=== PATIENT | female | born 1950 | race Caucasian/White ===

== ENCOUNTER 2017-09-07 13:55 | Inpatient (IN) | payer MEDICARE, OTHER ==
[~2017-09-07] VITALS: Ht 154.9 cm; Wt 74.6 kg
[~2017-09-07 13:55] MED LIST: BUPR150ER PO; ESTNOR PO; GABA100 PO; GLIP5 PO; METF500 PO
[2017-09-07 14:44] LABS: BASOPHILS ABSOLUTE AUTO 0.07 K/mm3 (0.00-0.23); BASOPHILS PERCENT AUTO 1 % (0-2); EOSINOPHILS PERCENT AUTO 0 % (0-6); Hematocrit 36.4 % (33.0-51.0); Hemoglobin 12.2 g/dL (11.5-16.0); IMMATURE GRAN ABSOLUTE AUTO 0.09 K/mm3 (0.00-0.10); IMMATURE GRAN PERCENT AUTO 1 % (0-1); LYMPHOCYTES PERCENT AUTO 21 % (21-46); MONOCYTES ABSOLUTE AUTO 1.54 K/mm3 (0.16-1.47); MONOCYTES PERCENT AUTO 10 % (4-13); Mean Corpuscular HGB 28.8 pg (26.0-34.0); Mean Corpuscular HGB Conc 33.5 g/dL (31.5-36.5); Mean Corpuscular Volume 86 fL (80-100); Mean Platelet Volume 11.8 fL (9.1-12.4); NEUTROPHILS ABSOLUTE AUTO 10.64 K/mm3 (1.96-9.15); NEUTROPHILS PERCENT AUTO 68 % (41-73); Platelet Count 309 K/mm3 (150-400); RDW Coefficient Variation 13.2 % (11.7-14.2); RDW Standard Deviation 41.3 fL (35.1-46.3); Red Blood Cell Count 4.23 M/mm3 (3.80-5.20); White Blood Cell Count 15.54 K/mm3 (4.00-11.30)
[2017-09-07 15:02] LABS: Alanine Aminotransfer (ALT/SGP 24 U/L (12-78); Albumin/Globulin Ratio 1.1 (0.8-1.8); Alk Phos 60 U/L (50-136); Anion Gap 13 mmol/L (6-16); Aspartate Aminotrans (AST/SGOT 51 U/L (12-37); Bilirubin, Total 0.3 mg/dL (0.1-1.0); Blood Urea Nitrogen 34 mg/dL (8-24); Bun/Creatinine Ratio 36.6 (12.0-20.0); CO2, Blood 22 mmol/L (21-32); Calcium, Blood 9.9 mg/dL (8.5-10.1); Chloride, Blood 109 mmol/L (98-108); Creatinine, Blood 0.93 mg/dL (0.40-1.00); Globulin, Blood 3.5 g/dL (2.2-4.0); Glomerular Filtration Rate >60 (60-); Glucose, Blood 148 mg/dL (70-99); Potassium, Blood 3.7 mmol/L (3.5-5.5); Sodium, Blood 144 mmol/L (136-145); Total Protein, Blood 7.5 g/dL (6.4-8.2)
[2017-09-07 15:13] LABS: CPK Creatine Kinase 2084 U/L (26-193)
[2017-09-07 15:29] LABS: Source, Urine Clean Catch
[2017-09-07 15:29] LABS: Creatine Kinase MB 10.7 ng/mL (0.0-3.6); Creatine Kinase MB Index 0.5 (0.0-4.0)
[2017-09-07] MEDS ORDERED: GLIM2 PO (15:33)
[2017-09-07] MEDS ORDERED: METF500C PO (15:33)
[2017-09-07] MEDS ORDERED: ASPI81CH PO (15:33)
[2017-09-07] MEDS ORDERED: PIOG15 PO (15:34)
[2017-09-07] MEDS ORDERED: VENL37.5 PO (15:34)
[2017-09-07] MEDS ORDERED: Lisinopril2.5 MG PO (15:34)
[2017-09-07 15:38] LABS: Bilirubin, Urine Neg (Neg); Blood, Urine Neg (Neg); Glucose Qualitative, Urine Neg (Neg); Ketones, Urine Neg (Neg); Leukocyte Esterase, Urine 1+ (Neg); Nitrite, Urine Neg (Neg); Protein, Urine 1+ (Neg); Urobilinogen, Urine NORM (Normal)
[2017-09-07 15:45] LABS: Appearance, Urine Clear (Clear); Color, Urine Yellow (P-Yellow)
[2017-09-07 15:47] LABS: Bacteria Few /hpf; Red Blood Cells, Urine Not Seen /hpf (0-2); Squamous Epithelial Cells Few /hpf (Few)
[2017-09-07 18:21] LABS: Magnesium, Blood 1.7 mg/dL (1.6-2.4); Troponin I 0.033 ng/mL (0.000-0.040)
[2017-09-08 05:38] LABS: Hematocrit 31.9 % (33.0-51.0); Hemoglobin 10.4 g/dL (11.5-16.0); Mean Corpuscular HGB Conc 32.6 g/dL (31.5-36.5); Mean Corpuscular Volume 86 fL (80-100); Mean Platelet Volume 11.9 fL (9.1-12.4); Platelet Count 241 K/mm3 (150-400); RDW Coefficient Variation 13.4 % (11.7-14.2); RDW Standard Deviation 41.9 fL (35.1-46.3); Red Blood Cell Count 3.71 M/mm3 (3.80-5.20); White Blood Cell Count 10.37 K/mm3 (4.00-11.30)
[2017-09-08 06:11] LABS: Anion Gap 10 mmol/L (6-16); Blood Urea Nitrogen 21 mg/dL (8-24); CO2, Blood 23 mmol/L (21-32); Calcium, Blood 8.1 mg/dL (8.5-10.1); Chloride, Blood 110 mmol/L (98-108); Creatinine, Blood 0.68 mg/dL (0.40-1.00); Glomerular Filtration Rate >60 (60-); Glucose, Blood 112 mg/dL (70-99); Potassium, Blood 3.3 mmol/L (3.5-5.5); Sodium, Blood 143 mmol/L (136-145)
[2017-09-08 06:29] LABS: CPK Creatine Kinase 1672 U/L (26-193)
[2017-09-08] MEDS ORDERED: ACET325 PO (12:53)
== END 2017-09-08 14:34 | disposition home or self-care (01) | DRG 558 ==
LOC: ER 13:55 → MEDS 18:17 → ENPENDDIS 09-08 11:00 → MEDS 09-08 14:34
PROVIDERS: Emergency Medicine; Nurse Practitioner Acute Care; Physician Assistant
DX: M62.82 Rhabdomyolysis (principal); E11.9 Type 2 diabetes mellitus without complications; I10 Essential (primary) hypertension; F32.9 Major depressive disorder, single episode, unspecified; Z66 Do not resuscitate; E86.0 Dehydration; R53.1 Weakness
CPT/HCPCS: 36415; 71046; 80048; 80053; 81001; 82550; 82553; 82947; 83735; 84484; 85025; 85027; 87086; 93005; 93010; 96360; 96361; 97116; 97161; 97165; 97535; 99285-25; G8978; G8979; G8980; G8987; G8988; G8989; J1650; J7030

== ENCOUNTER 2019-11-22 15:31 | Inpatient (IN) | payer MEDICARE, OTHER ==
[~2019-11-22] VITALS: Ht 154.9 cm; Wt 83.3 kg
[~2019-11-22 15:31] MED LIST changes: +ACET325 PO; +ASPI81CH PO; +GLIM2 PO; +PIOG15 PO
[2019-11-22 16:06] LABS: BASOPHILS ABSOLUTE AUTO 0.06 K/mm3 (0.00-0.23); BASOPHILS PERCENT AUTO 1 % (0-2); EOSINOPHILS ABSOLUTE AUTO 0.03 K/mm3 (0.00-0.68); EOSINOPHILS PERCENT AUTO 0 % (0-6); Hematocrit 38.8 % (33.0-51.0); Hemoglobin 12.6 g/dL (11.5-16.0); IMMATURE GRAN ABSOLUTE AUTO 0.04 K/mm3 (0.00-0.10); IMMATURE GRAN PERCENT AUTO 0 % (0-1); LYMPHOCYTES ABSOLUTE AUTO 2.83 K/mm3 (0.84-5.20); LYMPHOCYTES PERCENT AUTO 28 % (21-46); MONOCYTES PERCENT AUTO 5 % (4-13); Mean Corpuscular HGB 28.3 pg (26.0-34.0); Mean Corpuscular HGB Conc 32.5 g/dL (31.5-36.5); Mean Corpuscular Volume 87 fL (80-100); Mean Platelet Volume 11.4 fL (9.1-12.4); NEUTROPHILS ABSOLUTE AUTO 6.65 K/mm3 (1.96-9.15); NEUTROPHILS PERCENT AUTO 66 % (41-73); Platelet Count 288 K/mm3 (150-400); RDW Coefficient Variation 13.1 % (11.7-14.2); RDW Standard Deviation 41.4 fL (35.1-46.3); Red Blood Cell Count 4.46 M/mm3 (3.80-5.20); White Blood Cell Count 10.11 K/mm3 (4.00-11.30)
[2019-11-22 16:25] LABS: Calcium, Ionized (POC) 1.07 mmol/L (1.10-1.46); Chloride (POC) 101 mmol/L (98-108); Creatinine (POC) 0.8 mg/dL (0.6-1.0); Glucose (ISTAT POC) 125 mg/dL (70-99); Hemoglobin (POC) 12.6 g/dL (12.0-16.0); Sodium (POC) 138 mmol/L (135-148); Total CO2 (POC) 25 mmol/L (21-32)
[2019-11-22 16:26] LABS: Alanine Aminotransfer (ALT/SGP 13 U/L (12-78); Albumin, Blood 3.6 g/dL (3.4-5.0); Alk Phos 69 U/L (50-136); Anion Gap 8 mmol/L (6-16); Aspartate Aminotrans (AST/SGOT 6 U/L (12-37); Bilirubin, Total 0.3 mg/dL (0.1-1.0); Blood Urea Nitrogen 14 mg/dL (8-24); Bun/Creatinine Ratio 17.3 (12.0-20.0); CO2, Blood 26 mmol/L (21-32); Calcium, Blood 8.8 mg/dL (8.5-10.1); Chloride, Blood 105 mmol/L (98-108); Creatinine, Blood 0.81 mg/dL (0.40-1.00); Globulin, Blood 3.6 g/dL (2.2-4.0); Glomerular Filtration Rate >60 (60-); Glucose, Blood 128 mg/dL (70-99); Potassium, Blood 3.9 mmol/L (3.5-5.5); Sodium, Blood 139 mmol/L (136-145); Total Protein, Blood 7.2 g/dL (6.4-8.2)
[2019-11-22] MEDS ORDERED: Buspirone HCl7.5 MG PO (17:29)
[2019-11-22] MEDS ORDERED: Lisinopril2.5 MG PO (17:29)
[2019-11-22] MEDS ORDERED: METF500 PO (17:30)
[2019-11-22] MEDS ORDERED: Amaryl1 MG PO (17:31)
[2019-11-22] MEDS ORDERED: EFFEXOR XR150 MG PO (17:32)
--- NOTE | 2019-11-22 18:45 | NUR ---
CARE ASSUMPTION PT A&O X4. SP02 >92% ON RA. TELEMETRY READS 2-1 AV BLOCK, HR 30'S. PT C/O DIZZINESS WITH EXERTION. BED ALARM ON, CALL LIGHT IN REACH. INSTRUCTED TO CALL NURSE TO GET UP TO BED SIDE COMMODE. PTS DAUGHTER LEFT APPROX 1900. WILL CONTINUE TO MONITOR UNTIL END OF SHIFT.
--- NOTE | 2019-11-22 18:50 | NUR ---
PATIENT ARRIVED FROM ED, NO SIGNS OF ACUTE DISTRESS. PATIENT ABLE TO CONVERSE WITH NURSING STAFF. DAUGHTER AT BEDSIDE, WCTM.
--- NOTE | 2019-11-22 19:30 | NUR ---
DIZZINESS PT AMBULATED TO BATHROOM W/ 1 NURSE ASSIST W/ FWW. PT BECAME DIZZY & WEAK AFTER BATHROOM USE. BED MOVED TO BATHROOM DOORWAY FOR PT TO LAY BACK DOWN. VS ASSESSED W/ BP ELEVATED. 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 SPO2 > 92% ON RA. WILL CONTINUE TO MONITOR.
[2019-11-23 04:21] LABS: BASOPHILS ABSOLUTE AUTO 0.08 K/mm3 (0.00-0.23); BASOPHILS PERCENT AUTO 1 % (0-2); EOSINOPHILS ABSOLUTE AUTO 0.16 K/mm3 (0.00-0.68); EOSINOPHILS PERCENT AUTO 2 % (0-6); Hematocrit 38.1 % (33.0-51.0); Hemoglobin 12.2 g/dL (11.5-16.0); IMMATURE GRAN ABSOLUTE AUTO 0.02 K/mm3 (0.00-0.10); IMMATURE GRAN PERCENT AUTO 0 % (0-1); LYMPHOCYTES ABSOLUTE AUTO 3.89 K/mm3 (0.84-5.20); LYMPHOCYTES PERCENT AUTO 45 % (21-46); MONOCYTES ABSOLUTE AUTO 0.73 K/mm3 (0.16-1.47); MONOCYTES PERCENT AUTO 9 % (4-13); Mean Corpuscular HGB 27.7 pg (26.0-34.0); Mean Corpuscular Volume 87 fL (80-100); Mean Platelet Volume 12.1 fL (9.1-12.4); NEUTROPHILS ABSOLUTE AUTO 3.68 K/mm3 (1.96-9.15); NEUTROPHILS PERCENT AUTO 43 % (41-73); Platelet Count 287 K/mm3 (150-400); RDW Coefficient Variation 13.1 % (11.7-14.2); RDW Standard Deviation 41.4 fL (35.1-46.3); White Blood Cell Count 8.56 K/mm3 (4.00-11.30)
[2019-11-23 04:35] LABS: International Normalized Ratio 1.05; Prothrombin Time Results 11.2 Sec (9.7-11.5)
[2019-11-23 04:43] LABS: Anion Gap 5 mmol/L (6-16); Blood Urea Nitrogen 13 mg/dL (8-24); Bun/Creatinine Ratio 16.2 (12.0-20.0); CO2, Blood 31 mmol/L (21-32); Calcium, Blood 8.6 mg/dL (8.5-10.1); Chloride, Blood 104 mmol/L (98-108); Glomerular Filtration Rate >60 (60-); Glucose, Blood 122 mg/dL (70-99); Potassium, Blood 3.2 mmol/L (3.5-5.5); Sodium, Blood 140 mmol/L (136-145)
--- NOTE | 2019-11-23 05:29 | NUR ---
CONFUSION PT HAS BEEN CONFUSED THIS SHIFT. ALERT. ORIENTED TO SELF AND PLACE. PT KNOWS SHES IN THE HOSPITAL BUT "CAN'T REMEMBER" WHY. PT ASKS, "WHERE'S MY SISTER?" MULTIPLE TIMES DESPITE ANSWER FROM NURSE. PT HAS ATTEMPTED TO GET OUT OF BED MULTIPLE TIMES THIS SHIFT. WHEN ASKED WHAT SHE NEEDS, REPLIES, "SOMETHINGS WRONG. I NEED SOMETHING." BUT DOES NOT STATE WHAT THAT SOMETHING IS. STAFF IN FOR PT SAFETY D/T MULTIPLE ATTEMPTS OUT OF BED AND PT REPORT OF DIZZINESS. WILL CONTINUE TO MONITOR.
--- NOTE | 2019-11-23 05:45 | NUR ---
END OF SHIFT SUMMARY PT ALERT. ORIENTED TO SELF AND PLACE. CONFUSED AND FORGETFUL, SEE PREVIOUS NOTE. SP02 >92% ON RA. TELEMETRY READS 2-1 AV BLOCK, HR 30-40'S. PT IS NPO AWAITING PACE MAKER PLACEMENT IN AM. PT UP TO BEDSIDE COMMODE WITH ASSISTANCE SEVERAL TIMES T/O THE NIGHT. STAFF IN ROOM FOR PT SAFETY, BED ALARM ON. WILL CONTINUE TO MONITOR UNTIL END OF SHIFT.
--- NOTE | 2019-11-23 08:47 | NUR ---
ASSUMED CARE OF PT AT 0700. PT WAS TAKEN TO [facility] FOR PACEMAKER PLACEMENT AT SHIFT CHANGE. WILL RECOVER PT POST PROCEDURE.
--- NOTE | 2019-11-23 10:18 | NUR ---
0930, PT RETURNED FROM [facility] TO PCU4 S/P PACEMAKER PLACEMENT TO LEFT CHEST. PRESSURE DRESSING IN PLACE, C/D/I NO BLEEDING NOTED. PT RETURNS LETHARGIC, AWAKENS TO VOICE. 4L NC IN PLACE, VITALS ARE STABLE, WILL ATTEMPT TO WEAN O2 WHEN PT IS MORE AWAKE. HEEL REDUCER STOPPED AT ROOM, DUE TO PRESSURE DRESSING PLACEMENT, UNALBE TO DUE ECHO AT THIS TIME. DR ORDOÑEZ NOTIFED AND OKAY TO DELAY TO TOMORROW MORNING. FAMILY AT BEDSIDE, UPDATED ON PT'S STATUS.
--- NOTE | 2019-11-23 18:00 | NUR ---
SHIFT SUMMARY PT IS ALERT AND ORIENTED TO PERSON. THIS MORNING PT HAD DUAL CHAMBER PACEMAKER PLACED TO LEFT CHEST. PT HAS BEEN VERY FORGETFUL AND NEEDS FREQUENT REMINDING OF PACER PRECAUTIONS TO THAT LEFT ARM. AT TIMES PT WOULD BECOME VERY ANXIOUS AND STATED SHE WANTED TO GO HOME. FAMILY WAS VERY HELPFUL IN HELPING MONITOR PT AND REMIND HER TO NOT GET UP WITHOUT HELP AND KEEP HER LEFT ARM DOWN. PT/OT SAW PT AND IS RECOMMENDING ASSISTANCE UPON DISCHARGE. REACHED OUT TO CASE MANAGEMENT AND NOTIFIED OF DISCHARGE CONCERNS. TELEMETRY HAS SHOWN PT TO BE SINUS WITH OCCASIONAL PACING, RATE 80'S-90'S. VITALS HAVE BEEN STABLE.
--- NOTE | 2019-11-24 06:12 | NUR ---
IGOR SUMMARY PT WAS DISORIENTED TO TIME AND PLACE, CONTINUOUSLY FORGOT PERCAUTIONS TAKING OFF ARM SLING AND AMBULATING OUT OF BED. PT WAS UNSTABLE WHEN STANDING, USED BEDSIDE COMMODE, PT BECAME INCREASINGLY DISORIENTED AND COMBATIVE AROUND 0100, PROVIDER WAS NOTIFIED AND HALDOL WAS ORDERED AND ADMINISTERED TO HELP WITH THE INCREASED ANXIETY. PT WAS FORGETFUL NEVER KNOWING WHERE SHE WAS. PT DID NOT STATE ANY PAIN, STATED MILD DISCOMFORT AROUND SURGICAL SITE AND THE DRESSING. PT HAD A DUAL CHAMBER PACE MAKER PLACED WITH LOWER RATE SET AT 60BPM. HR WAS 80'S 100% PACED AND STABLE, BP 140'S SYSTOLIC. BED ALARM IS ON AND WILL CONTINUE TO MONITOR UNTIL SHIFT CHANGE.
[2019-11-24 12:24] LABS: Source, Urine Clean Catch
[2019-11-24 12:27] LABS: Appearance, Urine Hazy (Clear); Bilirubin, Urine Neg (Neg); Blood, Urine 1+ (Neg); Color, Urine Yellow (P-Yellow); Glucose Qualitative, Urine Neg (Neg); Ketones, Urine 1+ (Neg); Leukocyte Esterase, Urine 3+ (Neg); Nitrite, Urine Neg (Neg); Protein, Urine 2+ (Neg); Specific Gravity, Urine 1.025 (1.003-1.022); Urobilinogen, Urine NORM (Normal)
[2019-11-24 12:43] LABS: White Blood Cells, Urine 25-50 /hpf (0-5)
[2019-11-24 12:44] LABS: Bacteria Mod /hpf; Red Blood Cells, Urine 0-2 /hpf (0-2); Squamous Epithelial Cells Few /hpf (Few)
[2019-11-24 12:46] LABS: Mucus Light (0-Heavy)
--- NOTE | 2019-11-24 14:40 | NUR ---
Echocardiogram completed.
--- NOTE | 2019-11-24 17:38 | NUR ---
SHIFT SUMMARY INITIALLY AT START OF SHIFT PT WAS ALERT AND ORIENTED TO PERSON. THIS AFTERNOON PT IS ALERT AND ORIENTED 2-3, STILL REQUIRES FREQUENT REMINDING ON PACEMAKER PRECAUTIONS AND SAFETY. DR ORDOÑEZ CLEARED PT TODAY FROM CARDILOGY STANDPOINT. PT WAS STATUS CHANGED TO MEDICAL W/O TELEMETERY. PRIOR TO TELEMETRY DC, PT WAS PACED. VITALS HAVE BEEN STABLE. ONBOARDING SPECIALIST AND FAMILY WORKING ON DISCHARGE OPTIONS/ASSITANCE.
[2019-11-25 04:26] LABS: BASOPHILS ABSOLUTE AUTO 0.06 K/mm3 (0.00-0.23); BASOPHILS PERCENT AUTO 1 % (0-2); EOSINOPHILS ABSOLUTE AUTO 0.23 K/mm3 (0.00-0.68); EOSINOPHILS PERCENT AUTO 3 % (0-6); Hematocrit 35.9 % (33.0-51.0); Hemoglobin 11.6 g/dL (11.5-16.0); IMMATURE GRAN ABSOLUTE AUTO 0.03 K/mm3 (0.00-0.10); IMMATURE GRAN PERCENT AUTO 0 % (0-1); LYMPHOCYTES ABSOLUTE AUTO 3.13 K/mm3 (0.84-5.20); LYMPHOCYTES PERCENT AUTO 34 % (21-46); MONOCYTES ABSOLUTE AUTO 0.89 K/mm3 (0.16-1.47); MONOCYTES PERCENT AUTO 10 % (4-13); Mean Corpuscular HGB 28.2 pg (26.0-34.0); Mean Corpuscular HGB Conc 32.3 g/dL (31.5-36.5); Mean Corpuscular Volume 87 fL (80-100); Mean Platelet Volume 12.4 fL (9.1-12.4); NEUTROPHILS ABSOLUTE AUTO 4.79 K/mm3 (1.96-9.15); NEUTROPHILS PERCENT AUTO 53 % (41-73); Platelet Count 225 K/mm3 (150-400); RDW Coefficient Variation 13.1 % (11.7-14.2); RDW Standard Deviation 41.8 fL (35.1-46.3); Red Blood Cell Count 4.12 M/mm3 (3.80-5.20); White Blood Cell Count 9.13 K/mm3 (4.00-11.30)
[2019-11-25 04:47] LABS: Anion Gap 6 mmol/L (6-16); Blood Urea Nitrogen 14 mg/dL (8-24); Bun/Creatinine Ratio 18.1 (12.0-20.0); CO2, Blood 29 mmol/L (21-32); Calcium, Blood 8.7 mg/dL (8.5-10.1); Chloride, Blood 102 mmol/L (98-108); Creatinine, Blood 0.77 mg/dL (0.40-1.00); Glomerular Filtration Rate >60 (60-); Glucose, Blood 162 mg/dL (70-99); Potassium, Blood 3.7 mmol/L (3.5-5.5); Sodium, Blood 137 mmol/L (136-145)
--- NOTE | 2019-11-25 06:07 | NUR ---
SHIFT SUMMARY PT SHOWED SIGNIFICANT COGNITIVE IMPROVEMENT FROM PREVIOUS SHIFT 11/22. PT WAS ALERT AND COOPERATIVE, ORIENTED TO PERSON PLACE AND TIME, AND WAS MUCH MORE COMPLIANTWITH PERCAUTIONS. PT EXPRESSED SOME DISCOMFORT WITH LEFT ARM AND INCISION SITE WHEN POSITIONING SELF IN BED. HR AND BP WERE BOTH STABLE T/O THE NIGHT. IV IN L ARM WAS LEAKING SO IT WAS DC AND A NEW ONE WAS PLACED IN RIGHT ARM. PT HAD AN UNEVENTFUL NIGHT, WILL CONTINUE TO MONITOR UNTIL SHIFT CHANGE.
--- NOTE | 2019-11-25 17:30 | NUR ---
SHIFT SUMMARY PT IS ALERT AND ORIENTEDx3, FORGETFUL AT TIMES, IS DOING BETTER AT REMEMBERING SAFETY PRECAUTIONS. PT IS ANXIOUS TO DISCHARGE, INSTRUCTED PT ON HOME SAFETY, NEEDS REINFORCED. VITALS HAVE BEEN STABLE, CBG MORE ELEVATED TODAY, HOWEVER PT HAS REQUESTED SNACKS THROUGHOUT THE DAY. BED/CHAIR ALARMS UTILIZED FOR SAFETY TODAY. PACEMAKER DRESSING C/D/I, SLING REMAINS IN PLACE.
--- NOTE | 2019-11-26 06:40 | NUR ---
END OF SHIFT SUMMARY NO ACUTE CHANGES THIS SHIFT. VSS. PT HAS BEEN RESTING QUIETLY T/O MOST OF NIGHT. PACEMAKER SITE DRESSING SECURE AND CLEAN. AREA PRESENTS WITHOUT EXCESS SWELLING/HEAT/S/SX INFECTION. PT REMAINS OFF TELE PER ORDER. L ARM REMAINS IN SLING. PT CONTINUES TO SHOW COGNITIVE IMPROVEMENT AND APPEARS TO BE AT BASELINE MENTATION NOW. BED ALARM IN PLACE DUE TO BALANCE WITH SLING. OTHERWISE, WILL CONTINUE TO MONITOR UNTIL SHIFT CHANGE.
[2019-11-26] MEDS ORDERED: ACET325 PO (13:40)
--- NOTE | 2019-11-26 14:00 | NUR ---
UPDATE DISCHARGE INSTRUCTIONS PROVIDED. PT AND DAUGHTER EDUCATED ON NEW MEDICATIONS AND ALL CHANGES. CARE MANAGEMENT IN TO SEE PT TO HELP SET UP HOME HEALTH AND EQUIPTMENT NEEDED AT HOME. ALL QUESTIONS ANSWERED. PT TAKEN OUT BY [employer].
== END 2019-11-26 14:00 | disposition home health service (06) | DRG 243 ==
LOC: ER 15:31 → PCU 15:32
PROVIDERS: Emergency Medicine; Internal Medicine; Physician Assistant; ADMIT Internal Medicine
PROC: 0JH606Z Insertion of Pacemaker, Dual Chamber into Chest Subcutaneous Tissue and Fascia, Open Approach (ICD-10-PCS; principal; 2019-11-23)
PROC: 02HK3JZ Insertion of Pacemaker Lead into Right Ventricle, Percutaneous Approach (ICD-10-PCS; 2019-11-23)
PROC: 02H63JZ Insertion of Pacemaker Lead into Right Atrium, Percutaneous Approach (ICD-10-PCS; 2019-11-23)
DX: I44.1 Atrioventricular block, second degree (principal); F33.9 Major depressive disorder, recurrent, unspecified; Z79.84 Long term (current) use of oral hypoglycemic drugs; Z79.82 Long term (current) use of aspirin; E66.9 Obesity, unspecified; Z68.34 Body mass index [BMI] 34.0-34.9, adult; E11.9 Type 2 diabetes mellitus without complications; R00.1 Bradycardia, unspecified; E87.6 Hypokalemia; R41.0 Disorientation, unspecified; I11.9 Hypertensive heart disease without heart failure; R82.71 Bacteriuria; I44.2 Atrioventricular block, complete
CPT/HCPCS: 33208; 36415; 71045; 71046; 76937; 80047; 80048; 80053; 81001; 82947; 84484; 85014; 85025; 85610; 87086; 93005; 93010; 93306; 96372; 96374; 97110; 97116; 97129; 97130; 97162; 97166; 97530; 97535; 99152; 99153; 99285-25; A9270; A9270-GY; C1785; C1894; C1898; G0378; J0360; J0690; J0696; J1630; J1644; J2250; J2405; J3010; J7030; J7040; U0002